=== PATIENT | male | born 1985 | race Caucasian/White ===

== ENCOUNTER 2018-02-16 15:22 | Emergency (ER) | payer OTHER ==
[~2018-02-16] VITALS: Ht 175.3 cm; Wt 86.9 kg
[2018-02-16 15:25] VITALS: BP 129/78
[2018-02-16] MEDS ORDERED: AZITHROMYCIN 500 MG TABLET ONE (15:45)
[2018-02-16] MEDS ORDERED: LIDOCAINE-MPF 1%, 5ML ONE (15:46)
[2018-02-16] MEDS ORDERED: CEFTRIAXONE 250 MG ONE (15:46)
[2018-02-16] MEDS ORDERED: CEFTRIAXONE 250 MG IM ONE (16:00)
[2018-02-16] MEDS ORDERED: AZITHROMYCIN 500 MG TABLET PO ONE (16:00)
[2018-02-16 16:37] LABS: MICROSCOPIC NOT IND
[2018-02-16 16:44] LABS: CULTURE INDICATED? NO
== END 2018-02-16 16:34 | disposition home or self-care (01) ==
LOC: ED 15:55
DX: A56.01 Chlamydial cystitis and urethritis (principal)
CPT/HCPCS: 81003; 87491; 87591; 96372; 99284; J0696